=== PATIENT | female | born 1990 | race Caucasian/White ===

== ENCOUNTER → 2016-12-20 | Outpatient (CLI) | payer OTHER ==
--- NOTE | 2016-12-22 07:39 | RADIOLOGY REPORT PS360 ---
DIG MAMM-DX UNI-LT W/CAD, US BREAST-LT COMPLETE W/AXILLA COMPARISON: None INDICATION: Palpable abnormality left breast in the retroareolar region ORDERING PHYSICIAN: ASIA FELIPE APRN PATIENT AGE: 26 years TECHNIQUE: Routine images obtained of the left breast along with spot compression views and left breast ultrasound FINDINGS: There is dense fibroglandular tissue which decreases sensitivity of mammography. No discrete mass evident by mammogram in the retroareolar region. No malignant appearing mass or malignant appearing microcalcification. Left breast ultrasound: No discrete sonographic abnormality apparent. Small lymph nodes are present in the axilla. IMPRESSION: Negative left mammogram and ultrasound BI-RADS CATEGORY: 1_Negative RECOMMENDED FOLLOWUP: Correlation with physical exam is needed. Any possible nodule should be managed on clinical basis. Negative mammogram and negative ultrasound does not exclude the possibility of malignancy and should not deter biopsy if there is indeed a palpable nodule especially in this patient with dense fibroglandular tissue. (A letter has been sent to the patient regarding results of the study.)
== END ==
LOC: RAD 14:33
DX: N63.20 Unspecified lump in the left breast, unspecified quadrant (principal)
CPT/HCPCS: G0206-LT

== ENCOUNTER → 2017-01-07 | Outpatient (CLI) | payer OTHER ==
[2017-01-07 10:44] LABS: URINE BILIRUBIN - DIPSTICK NEGATIVE (NEG); URINE BLOOD NEGATIVE (NEG)
--- NOTE | 2017-01-07 11:04 | RADIOLOGY REPORT PS360 ---
EXAM: Barium swallow/esophagram. INDICATION: Dysphasia ORDERING PHYSICIAN: IAN CONDE MD PATIENT AGE: 26 years COMPARISON: None TECHNIQUE: In the upright position the patient was observed to swallow barium in both the AP and lateral view. The cervical esophagus was examined under fluoroscopy with images obtained. The patient was then placed prone in the right anterior oblique position and was observed to swallow barium with Valsalva technique . FLUOROSCOPY TIME: 1 minute and 3 seconds FINDINGS: There was no evidence of aspiration. There was normal peristalsis. No filling defects or mucosal abnormalities. No masses or strictures. No hiatal hernia. No reflux demonstrated IMPRESSION: Negative barium swallow.
== END ==
LOC: RAD 09:38 → LAB 09:38 → RAD 10:00
PROVIDERS: Nurse Practitioner Family
DX: R13.10 Dysphagia, unspecified (principal)

== ENCOUNTER → 2017-01-14 | Outpatient (CLI) | payer OTHER ==
[2017-01-14 14:27] LABS: LYMPH # 3.5 K/mm3 (0.7-4.5); LYMPH % 25.5 % (10-50.0)
--- NOTE | 2017-01-14 15:05 | RADIOLOGY REPORT PS360 ---
US THYROID HISTORY: DYSPHAGIA ORDERING PHYSICIAN: IAN CONDE MD PATIENT AGE: 26 years COMPARISON: None FINDINGS: The thyroid gland is fairly homogeneous echogenicity of both sides Right lobe: 4.3 x 1.1 x 1.9 cm. Incidental 3 mm cyst is present in the mid polar region. 2.5 mm hypoechoic nodule in the mid polar region posteriorly also probably due to small cyst. Left lobe: 4.1 x 1.0 x 1.4 cm. 3 mm hypoechoic nodule upper pole centrally. 2 mm hypoechoic nodule lower pole Isthmus: Unremarkable IMPRESSION: Small bilateral thyroid cysts otherwise negative thyroid ultrasound
[2017-01-14 15:09] LABS: BUN 11 mg/dL (7-18)
[2017-01-14 15:11] LABS: GFR (ESTIMATED) 75 ML/MIN (59-)
--- NOTE | 2017-01-14 15:20 | RADIOLOGY REPORT PS360 ---
US BREAST-RT COMPLETE W/AXILLA COMPARISON: 01/03/2017 INDICATION: Follow-up breast nodule ORDERING PHYSICIAN: IAN CONDE MD PATIENT AGE: 26 years TECHNIQUE: Standard images performed. Real-time imaging observed with the technologist FINDINGS: There is a small lymph node in the right axilla measuring approximately 2.3 x 0.7 cm. This is deep within the axilla and unchanged from the previous exam. Another small axillary node is present at 1.4 cm. No additional abnormalities are evident. The patient was scheduled for biopsy if the nodule had enlarged.. Patient was reassured that node was unchanged in size to return if she noticed any changes on self physical exam and also to return for six-month follow-up. IMPRESSION: Overall no change from the previous exam. No convincing evidence of malignancy. BI-RADS CATEGORY: 2_Benign RECOMMENDED FOLLOWUP: 6 month sonographic follow-up of the right axilla (A letter has been sent to the patient regarding results of the study.)
== END ==
LOC: RAD 12:15 → LAB 12:15 → RAD 12:30
PROVIDERS: Surgery
DX: N63.31 Unspecified lump in axillary tail of the right breast (principal); Z83.49 Family history of other endocrine, nutritional and metabolic diseases; R13.10 Dysphagia, unspecified

== ENCOUNTER → 2017-01-20 | Outpatient (CLI) | payer OTHER | LOC: CARL-LAB 09:46 | DX: N91.2 Amenorrhea, unspecified (principal) ==

== ENCOUNTER → 2017-01-25 | Outpatient (CLI) | payer OTHER ==
[2017-01-25 12:13] LABS: HEMOGLOBIN 12.7 g/dL (12.2-16.2); LYMPH # 3.1 K/mm3 (0.7-4.5); LYMPH % 26.9 % (10-50.0)
== END ==
LOC: LAB 11:57
PROVIDERS: Internal Medicine Adolescent Medicine
DX: D72.829 Elevated white blood cell count, unspecified (principal)